=== PATIENT | female | born 2000 | race Caucasian/White ===

== ENCOUNTER 2022-04-07 09:42 | Emergency (ER) | payer OTHER ==
[2022-04-07] MEDS ORDERED: NAPROXEN500 MG PO (12:26)
== END 2022-04-07 12:40 | disposition home or self-care (01) ==
LOC: FER 09:42
DX: S63.521A Sprain of radiocarpal joint of right wrist, initial encounter (principal); S63.641A Sprain of metacarpophalangeal joint of right thumb, initial encounter; Z88.2 Allergy status to sulfonamides; X58.XXXA Exposure to other specified factors, initial encounter; Y92.009 Unspecified place in unspecified non-institutional (private) residence as the place of occurrence of the external cause
CPT/HCPCS: 73110; J1885